=== PATIENT | male | born 1990 | race American Indian/Alaskan Native ===

== ENCOUNTER 2019-09-22 13:18 | Emergency (ER) | payer OTHER ==
[2019-09-22] MEDS ORDERED: diphenhydrAMINE 50 MG/ML VIAL IV ONE (13:30)
[2019-09-22] MEDS ORDERED: FAMOTIDINE 20 MG/2 ML INJ IV ONE (13:30)
[2019-09-22] MEDS ORDERED: dexAMETHasone 20 MG/5 ML VIAL IV ONE (13:30)
--- NOTE | 2019-09-22 15:30 | Emergency Department Report ---
ED General Adult HPI - General Chief complaint: Allergic Reaction Stated complaint: ALLERGIC REACTION Time Seen by Provider: 09/22/19 13:30 Source: patient Mode of arrival: Ambulatory Limitations: No Limitations - History of Present Illness Initial comments: 28-year-old man thinks he is some nuts by accident when he ate a candy bar. This is a poor historian however he is acting saying he is allergic to nuts. He developed swelling of his lips but does not complain of acute dyspnea. No complaint of pain. He has no difficulty with his secretions. He is not taking an RAMIRO inhibitor to my knowledge. -: Gradual, minutes(s) Location: face Severity scale (0 -10): 0 - Related Data Allergies Allergy/AdvReac Type Severity Reaction Status Date / Time nut - unspecified Allergy Hives Verified 09/22/19 13:19 ED Review of Systems ROS: Stated complaint: ALLERGIC REACTION Other details as noted in HPI Constitutional: denies: chills, fever Eyes: denies: eye pain, eye discharge, vision change ENT: denies: ear pain, throat pain Respiratory: denies: cough, shortness of breath, wheezing Cardiovascular: denies: chest pain, palpitations Endocrine: no symptoms reported Gastrointestinal: denies: abdominal pain, nausea, diarrhea Genitourinary: denies: urgency, dysuria Musculoskeletal: denies: back pain, joint swelling, arthralgia Skin: denies: rash, lesions Neurological: denies: headache, weakness, paresthesias Psychiatric: denies: anxiety, depression Hematological/Lymphatic: denies: easy bleeding, easy bruising ED Past Medical Hx - Past Medical History Previous Medical History?: No Additional medical history: Allergic reaction - Surgical History Past Surgical History?: No - Social History Smoking Status: Never Smoker Substance Use Type: None ED Physical Exam - General Limitations: No Limitations General appearance: alert, in no apparent distress - Head Head exam: Present: atraumatic, normocephalic - Eye Eye exam: Present: normal appearance - ENT ENT exam: Present: mucous membranes moist, other (1+ lip edema no oral pharyngeal edema) - Neck Neck exam: Present: normal inspection. Absent: tenderness, meningismus - Respiratory Respiratory exam: Present: normal lung sounds bilaterally. Absent: respiratory distress - Cardiovascular Cardiovascular Exam: Present: regular rate, normal rhythm. Absent: systolic murmur, diastolic murmur, rubs, gallop - GI/Abdominal GI/Abdominal exam: Present: soft, normal bowel sounds. Absent: distended, tenderness, guarding, rebound - Rectal Rectal exam: Present: deferred - Extremities Exam Extremities exam: Present: normal inspection - Back Exam Back exam: Present: normal inspection - Neurological Exam Neurological exam: Present: alert, oriented X3, CN II-XII intact. Absent: motor sensory deficit - Psychiatric Psychiatric exam: Present: normal affect, normal mood - Skin Skin exam: Present: warm, dry, intact, normal color. Absent: rash ED Course Vital Signs 09/22/19 09/22/19 09/22/19 13:23 13:47 13:59 Temperature 98.2 F 97.9 F Pulse Rate 55 L 107 H Respiratory 22 26 H 18 Rate Blood Pressure 122/55 114/71 [Left] O2 Sat by Pulse 92 95 Oximetry 09/22/19 09/22/19 09/22/19 14:01 14:15 14:31 Temperature Pulse Rate 89 86 86 Respiratory 17 17 16 Rate Blood Pressure [Left] O2 Sat by Pulse 96 97 93 Oximetry 09/22/19 14:45 Temperature Pulse Rate 86 Respiratory 14 Rate Blood Pressure [Left] O2 Sat by Pulse 95 Oximetry - Reevaluation(s) Reevaluation #1: Since angioedema responded to above medications. He was observed. He developed no airway problem. He is appropriate for outpatient management. Will verify that he does not take an RAMIRO inhibitor. 09/22/19 15:32 Critical care attestation.: If time is entered above; I have spent that time in minutes in the direct care of this critically ill patient, excluding procedure time. ED Disposition Clinical Impression: Angioedema Qualifiers: Encounter type: initial encounter Qualified Code(s): T78.3XXA - Angioneurotic edema, initial encounter Disposition: - TO HOME OR SELFCARE Is pt being admited?: No Does the pt Need Aspirin: No Condition: Stable Instructions: Angioedema (ED) Additional Instructions: Benadryl 25 mg every 6 hours 24 hours. Pepcid 10 mg twice a day for 5 days. These are [id number] medications. Follow up with a primary care physician. Return any recurrent swelling or acute change as needed. Time of Disposition: 15:33
[2019-09-22 17:57] VITALS: BP 110/64
== END 2019-09-22 16:48 | disposition home or self-care (01) ==
LOC: ED 13:18
DX: T78.3XXA Angioneurotic edema, initial encounter (principal); Z91.018 Allergy to other foods; Y92.89 Other specified places as the place of occurrence of the external cause
CPT/HCPCS: 96374; 96375; 99282; J1100; J1200

== ENCOUNTER 2020-01-13 22:30 | Emergency (ER) | payer OTHER ==
[2020-01-13 22:42] VITALS: BP 123/68
--- NOTE | 2020-01-14 03:42 | Emergency Department Report ---
ED ENT HPI - General Chief complaint: Sore Throat Stated complaint: FEVER/THROAT PAIN/FLU SX Time Seen by Provider: 01/14/20 02:01 Source: patient Mode of arrival: Ambulatory Limitations: No Limitations - History of Present Illness Initial comments: This is a 29-year-old -[place] male who presents to the emergency room with rhinorrhea, sore throat, chills, myalgia, and left ear pain for 1 day. Patient states he is taking Tylenol Cold and flu which improved his fever but he continues to have sore throat with swallowing. Denies nausea, vomiting, diarrhea, shortness of breath, wheezing, chest pain, nausea, vomiting, or diarrhea. MD complaint: sore throat, ear pain Onset/Timin -: days(s) Location: L ear, throat Severity: mild Severity scale (0 -10): 3 Quality: aching Consistency: constant Improves with: none Worsens with: swallowing, eating Associated Symptoms: pain with swallowing, sore throat. denies: cough, gum swelling, toothache, tinnitus, hearing loss, discharge from ear, rhinorrhea - Related Data Previous Rx's Medication Instructions Recorded Last Taken Type Penicillin V Potassium 500 mg PO BID #20 tablet 01/14/20 Unknown Rx Allergies Allergy/AdvReac Type Severity Reaction Status Date / Time nut - unspecified Allergy Hives Verified 09/22/19 13:19 ED Dental HPI - General Chief complaint: Sore Throat Stated complaint: FEVER/THROAT PAIN/FLU SX Time Seen by Provider: 01/14/20 02:01 Source: patient Mode of arrival: Ambulatory Limitations: No Limitations - Related Data Previous Rx's Medication Instructions Recorded Last Taken Type Penicillin V Potassium 500 mg PO BID #20 tablet 01/14/20 Unknown Rx Allergies Allergy/AdvReac Type Severity Reaction Status Date / Time nut - unspecified Allergy Hives Verified 09/22/19 13:19 ED Review of Systems ROS: Stated complaint: FEVER/THROAT PAIN/FLU SX Other details as noted in HPI Constitutional: chills. denies: fever ENT: ear pain (Left), throat pain, congestion Respiratory: denies: cough, shortness of breath, wheezing Cardiovascular: denies: chest pain, palpitations Gastrointestinal: denies: abdominal pain, nausea, diarrhea Musculoskeletal: myalgia. denies: back pain, joint swelling, arthralgia Skin: denies: rash, lesions Neurological: denies: headache, weakness, paresthesias Psychiatric: denies: anxiety, depression ED Past Medical Hx - Past Medical History Previous Medical History?: No Additional medical history: Allergic reaction - Surgical History Past Surgical History?: No - Social History Smoking Status: Current Every Day Smoker Substance Use Type: Alcohol - Medications Home Medications: Home Medications Medication Instructions Recorded Confirmed Last Taken Type Penicillin V Potassium 500 mg PO BID #20 tablet 01/14/20 Unknown Rx ED Physical Exam - General Limitations: No Limitations General appearance: alert, in no apparent distress - ENT ENT exam: Present: normal orophraynx (Erythematous and enlarged tonsils with white exudate), mucous membranes moist, TM's normal bilaterally, normal external ear exam - Neck Neck exam: Present: normal inspection - Respiratory Respiratory exam: Present: normal lung sounds bilaterally. Absent: respiratory distress - Cardiovascular Cardiovascular Exam: Present: regular rate, normal rhythm. Absent: systolic murmur, diastolic murmur, rubs, gallop - GI/Abdominal GI/Abdominal exam: Present: soft, normal bowel sounds. Absent: distended, tenderness, guarding, rebound, rigid - Extremities Exam Extremities exam: Present: normal inspection - Neurological Exam Neurological exam: Present: alert, oriented X3, normal gait - Psychiatric Psychiatric exam: Present: normal affect, normal mood - Skin Skin exam: Present: warm, dry, intact, normal color. Absent: rash ED Course Vital Signs 01/13/20 22:38 Temperature 98.4 F Pulse Rate 86 Respiratory 18 Rate Blood Pressure 123/68 O2 Sat by Pulse 97 Oximetry ED Medical Decision Making - Medical Decision Making This is a 29-year-old male that presents with sore throat and left ear pain for 1 day. Patient examined by me and stable. No distress noted. Centor positive for strep. Vitals stable. Start penicillin V 500 mg po bid x 10 days. Take Tylenol or ibuprofen for pain. Discussed plan with patient and he agreed with plan to treat outpatient. Discharged home stable with strict return instructions. Return to work tomorrow. Follow up with PCP in 48-72 hours. Critical care attestation.: If time is entered above; I have spent that time in minutes in the direct care of this critically ill patient, excluding procedure time. ED Disposition Clinical Impression: Acute sore throat, Otalgia of left ear Pharyngitis Qualifiers: Pharyngitis/tonsillitis etiology: unspecified etiology Qualified Code(s): J02.9 - Acute pharyngitis, unspecified Disposition: - TO HOME OR SELFCARE Is pt being admited?: No Condition: Stable Instructions: Pharyngitis (ED) Additional Instructions: Expect symptoms to improve within 3 or 4 days. There is no need for bed rest or isolation. Use Tylenol or Ibuprofen for symptoms of sore throat, headache, and fever. Return to work in 24 hours of taking antibiotics. Follow up with Primary Care Provider in 48-72 hours. Prescriptions: Penicillin V Potassium 500 mg PO BID #20 tablet Referrals: [facility] [place] [Outside] - 3-5 Days [facility] [Outside] - 3-5 Days [facility] [Provider Group] - 3-5 Days Forms: Work/School Release Form(ED) Time of Disposition: 03:43
== END 2020-01-14 03:55 | disposition home or self-care (01) ==
LOC: ED 22:30
DX: H92.02 Otalgia, left ear (principal); J02.9 Acute pharyngitis, unspecified; Z91.018 Allergy to other foods; F17.200 Nicotine dependence, unspecified, uncomplicated
CPT/HCPCS: 99281

== ENCOUNTER 2021-09-27 03:54 | Emergency (ER) | payer SELFPAY ==
[2021-09-27 04:01] VITALS: BP 122/82
[2021-09-27] MEDS ORDERED: oxyCODONE /ACETAMINOPHEN 5-325MG TAB PO ONE (04:48)
--- NOTE | 2021-09-27 04:55 | Emergency Department Report ---
ED ENT HPI - General Chief complaint: Dental/Oral Stated complaint: toothache Time Seen by Provider: 09/27/21 04:47 Source: patient Mode of arrival: Ambulatory Limitations: No Limitations - History of Present Illness Initial comments: 30-year-old F [place] male [facility] emerge department complaining of 1 to 2-week history of dental pain was started out in the left upper molar region and then now progressed to the left lower molar region. Pain is dull and throbbing worse with chewing may experience a dental trauma in the initial phase molar region when biting down tooth crack by intense pain reports no foul taste no significant swelling but the pain is radiating across his jawline and down to his left upper neck MD complaint: tooth pain -: Gradual Severity: moderate Quality: dull Consistency: constant Improves with: none Worsens with: eating Context- Dental: history of dental caries Associated Symptoms: toothache. denies: discharge from ear, rhinorrhea - Related Data Previous Rx's Medication Instructions Recorded Last Taken Type Penicillin V Potassium 500 mg PO BID #20 tablet 01/14/20 Unknown Rx Colchicine 0.6 mg PO DAILY #14 capsule 01/17/20 Unknown Rx Famotidine [Pepcid] 40 mg PO QHS #30 tablet 01/17/20 Unknown Rx Ibuprofen [Motrin 600 MG tab] 600 mg PO TID #42 tablet 01/17/20 Unknown Rx Amoxicillin [Amoxicillin TAB] 875 mg PO BID #20 tablet 09/27/21 Unknown Rx Chlorhexidine Mouthwash [Peridex] 15 ml MM BID #1 bottle 09/27/21 Unknown Rx Ketorolac [Toradol] 10 mg PO Q6H PRN #15 tablet 09/27/21 Unknown Rx Lidocaine Viscous 2% 5 ml MM Q3H PRN #120 udc 09/27/21 Unknown Rx Allergies Allergy/AdvReac Type Severity Reaction Status Date / Time nut - unspecified Allergy Hives Verified 09/22/19 13:19 ED Dental HPI - General Chief complaint: Dental/Oral Stated complaint: toothache Time Seen by Provider: 09/27/21 04:47 Source: patient Mode of arrival: Ambulatory Limitations: No Limitations - Related Data Previous Rx's Medication Instructions Recorded Last Taken Type Penicillin V Potassium 500 mg PO BID #20 tablet 01/14/20 Unknown Rx Colchicine 0.6 mg PO DAILY #14 capsule 01/17/20 Unknown Rx Famotidine [Pepcid] 40 mg PO QHS #30 tablet 01/17/20 Unknown Rx Ibuprofen [Motrin 600 MG tab] 600 mg PO TID #42 tablet 01/17/20 Unknown Rx Amoxicillin [Amoxicillin TAB] 875 mg PO BID #20 tablet 09/27/21 Unknown Rx Chlorhexidine Mouthwash [Peridex] 15 ml MM BID #1 bottle 09/27/21 Unknown Rx Ketorolac [Toradol] 10 mg PO Q6H PRN #15 tablet 09/27/21 Unknown Rx Lidocaine Viscous 2% 5 ml MM Q3H PRN #120 udc 09/27/21 Unknown Rx Allergies Allergy/AdvReac Type Severity Reaction Status Date / Time nut - unspecified Allergy Hives Verified 09/22/19 13:19 ED Review of Systems ROS: Stated complaint: toothache Other details as noted in HPI Comment: All other systems reviewed and negative ED Past Medical Hx - Past Medical History Additional medical history: Allergic reaction - Social History Smoking Status: Never Smoker Substance Use Type: None - Medications Home Medications: Home Medications Medication Instructions Recorded Confirmed Last Taken Type Penicillin V Potassium 500 mg PO BID #20 tablet 01/14/20 Unknown Rx Colchicine 0.6 mg PO DAILY #14 capsule 01/17/20 Unknown Rx Famotidine [Pepcid] 40 mg PO QHS #30 tablet 01/17/20 Unknown Rx Ibuprofen [Motrin 600 MG tab] 600 mg PO TID #42 tablet 01/17/20 Unknown Rx Amoxicillin [Amoxicillin TAB] 875 mg PO BID #20 tablet 09/27/21 Unknown Rx Chlorhexidine Mouthwash [Peridex] 15 ml MM BID #1 bottle 09/27/21 Unknown Rx Ketorolac [Toradol] 10 mg PO Q6H PRN #15 tablet 09/27/21 Unknown Rx Lidocaine Viscous 2% 5 ml MM Q3H PRN #120 udc 09/27/21 Unknown Rx ED Physical Exam - General Limitations: No Limitations General appearance: alert, in no apparent distress - Head Head exam: Present: atraumatic, normocephalic - Eye Eye exam: Present: normal appearance - ENT ENT exam: Present: mucous membranes moist, other (Some dental caries noted to the left upper molar region. But there is pain with palpation to the to the left lower molar region. No adjacent gingival swelling no bleeding airway patent tongue uvula midline) - Neck Neck exam: Present: normal inspection - Respiratory Respiratory exam: Present: normal lung sounds bilaterally. Absent: respiratory distress - Cardiovascular Cardiovascular Exam: Present: regular rate, normal rhythm. Absent: systolic murmur, diastolic murmur, rubs, gallop - GI/Abdominal GI/Abdominal exam: Present: soft, normal bowel sounds - Rectal Rectal exam: Present: deferred - Extremities Exam Extremities exam: Present: normal inspection - Back Exam Back exam: Present: normal inspection - Neurological Exam Neurological exam: Present: alert, oriented X3 - Psychiatric Psychiatric exam: Present: normal affect, normal mood - Skin Skin exam: Present: warm, dry, intact, normal color. Absent: rash ED Course Vital Signs 09/27/21 03:55 Temperature 98.6 F Pulse Rate 91 H Respiratory 16 Rate Blood Pressure 122/82 [Right] O2 Sat by Pulse 98 Oximetry Critical care attestation.: If time is entered above; I have spent that time in minutes in the direct care of this critically ill patient, excluding procedure time. ED Disposition Clinical Impression: Dentalgia Disposition: HOME / SELF CARE / HOMELESS Is pt being admited?: No Does the pt Need Aspirin: No Condition: Stable Instructions: Diet and Dental Disease, Ectopic Eruption of Teeth, Pediatric, Benzocaine mouth gel, ointment, solution, or dental paste, Preventive Dental Care, Adult Prescriptions: Amoxicillin [Amoxicillin TAB] 875 mg PO BID #20 tablet Lidocaine Viscous 2% 5 ml MM Q3H PRN #120 udc PRN Reason: Pain, Moderate (4-6) Chlorhexidine Mouthwash [Peridex] 15 ml MM BID #1 bottle Ketorolac [Toradol] 10 mg PO Q6H PRN #15 tablet PRN Reason: Pain Referrals: PRIMARY CARE,MD [Primary Care Provider] - 3-5 Days [facility] [Outside] - 3-5 Days
== END 2021-09-27 05:24 | disposition home or self-care (01) ==
LOC: ED 03:54
DX: K08.89 Other specified disorders of teeth and supporting structures (principal); Z59.00 Homelessness unspecified; Z79.899 Other long term (current) drug therapy
CPT/HCPCS: 99282

== ENCOUNTER 2021-11-03 20:30 | Emergency (ER) | payer SELFPAY ==
[2021-11-03 20:35] VITALS: BP 137/99
[2021-11-03] MEDS ORDERED: CLINDAMYCIN 300 MG CAP PO ONE (21:40)
[2021-11-03] MEDS ORDERED: ONDANSETRON 4 MG ODT TAB PO ONE (21:40)
[2021-11-03] MEDS ORDERED: IBUPROFEN 600 MG TAB PO ONE (21:40)
[2021-11-03] MEDS ORDERED: oxyCODONE /ACETAMINOPHEN 5-325MG TAB PO ONE (21:40)
[2021-11-03] MEDS ORDERED: DOXYCYCLINE 100 MG CAP PO ONE (21:41)
--- NOTE | 2021-11-03 22:16 | Emergency Department Report ---
ED General Adult HPI - General Chief complaint: Skin/Abscess/Foreign Body Stated complaint: CYST ON TAILBONE Source: patient Mode of arrival: Ambulatory Limitations: No Limitations - History of Present Illness Initial comments: Patient is a 31-year-old -[place] male with no past medical history presented to the ED with complaint of acute onset persistent painful mildly swollen rash on pilonidal area for the last 2 days. Patient states the pain is especially worse in the last 12 hours. Patient states that in the movement or palpation of the area makes the pain worse. 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 Patient states that he has not taken any medication prior to arrival in the ED. Patient denies dizziness, syncopal, traumatic injury, nausea and vomiting, fever, chills, urinary or bowel incontinence or saddle paresthesia. MD Complaint: pilonidal painful swollen rash -: Sudden, days(s) (2) Location: buttocks Radiation: non-radiation Severity scale (0 -10): 8 Quality: aching, sharp Improves with: none Associated Symptoms: denies other symptoms, rash (Swollen, painful pilonidal area due to a rash). denies: confusion, chest pain, cough, fever/chills, headaches, loss of appetite, malaise, nausea/vomiting, shortness of breath Treatments Prior to Arrival: none - Related Data Previous Rx's Medication Instructions Recorded Last Taken Type Penicillin V Potassium 500 mg PO BID #20 tablet 01/14/20 Unknown Rx Colchicine 0.6 mg PO DAILY #14 capsule 01/17/20 Unknown Rx Famotidine [Pepcid] 40 mg PO QHS #30 tablet 01/17/20 Unknown Rx Ibuprofen [Motrin 600 MG tab] 600 mg PO TID #42 tablet 01/17/20 Unknown Rx Amoxicillin [Amoxicillin TAB] 875 mg PO BID #20 tablet 09/27/21 Unknown Rx Chlorhexidine Mouthwash [Peridex] 15 ml MM BID #1 bottle 09/27/21 Unknown Rx Ketorolac [Toradol] 10 mg PO Q6H PRN #15 tablet 09/27/21 Unknown Rx Lidocaine Viscous 2% 5 ml MM Q3H PRN #120 udc 09/27/21 Unknown Rx Clindamycin [Clindamycin CAP] 300 mg PO Q8H #30 cap 11/03/21 Unknown Rx Doxycycline Hyclate 100 mg PO Q12H #20 cap 11/03/21 Unknown Rx Ibuprofen [Motrin] 800 mg PO Q8HR PRN #30 tablet 11/03/21 Unknown Rx traMADoL [Ultram] 50 mg PO Q6HR PRN #12 tablet 11/03/21 Unknown Rx Allergies Allergy/AdvReac Type Severity Reaction Status Date / Time nut - unspecified Allergy Hives Verified 09/22/19 13:19 ED Review of Systems ROS: Stated complaint: CYST ON TAILBONE Other details as noted in HPI Constitutional: denies: chills, fever Eyes: denies: eye pain, eye discharge, vision change ENT: denies: ear pain, throat pain Respiratory: denies: cough, shortness of breath, wheezing Cardiovascular: denies: chest pain, palpitations Endocrine: no symptoms reported Gastrointestinal: denies: abdominal pain, nausea, diarrhea Genitourinary: denies: urgency, dysuria Musculoskeletal: denies: back pain, joint swelling, arthralgia Skin: rash (Swollen, painful pilonidal rash). denies: lesions, change in color, change in hair/nails, pruritus, other Neurological: denies: headache, weakness, paresthesias Psychiatric: denies: anxiety, depression Hematological/Lymphatic: denies: easy bleeding, easy bruising ED Past Medical Hx - Past Medical History Additional medical history: Allergic reaction - Surgical History Past Surgical History?: No - Social History Smoking Status: Never Smoker Substance Use Type: None - Medications Home Medications: Home Medications Medication Instructions Recorded Confirmed Last Taken Type Penicillin V Potassium 500 mg PO BID #20 tablet 01/14/20 Unknown Rx Colchicine 0.6 mg PO DAILY #14 capsule 01/17/20 Unknown Rx Famotidine [Pepcid] 40 mg PO QHS #30 tablet 01/17/20 Unknown Rx Ibuprofen [Motrin 600 MG tab] 600 mg PO TID #42 tablet 01/17/20 Unknown Rx Amoxicillin [Amoxicillin TAB] 875 mg PO BID #20 tablet 09/27/21 Unknown Rx Chlorhexidine Mouthwash [Peridex] 15 ml MM BID #1 bottle 09/27/21 Unknown Rx Ketorolac [Toradol] 10 mg PO Q6H PRN #15 tablet 09/27/21 Unknown Rx Lidocaine Viscous 2% 5 ml MM Q3H PRN #120 udc 09/27/21 Unknown Rx Clindamycin [Clindamycin CAP] 300 mg PO Q8H #30 cap 11/03/21 Unknown Rx Doxycycline Hyclate 100 mg PO Q12H #20 cap 11/03/21 Unknown Rx Ibuprofen [Motrin] 800 mg PO Q8HR PRN #30 tablet 11/03/21 Unknown Rx traMADoL [Ultram] 50 mg PO Q6HR PRN #12 tablet 11/03/21 Unknown Rx ED Physical Exam - General Limitations: No Limitations General appearance: alert, in no apparent distress - Head Head exam: Present: atraumatic, normocephalic, normal inspection - Eye Eye exam: Present: normal appearance, PERRL, EOMI Pupils: Present: normal accommodation - ENT ENT exam: Present: normal exam, normal orophraynx, mucous membranes moist, TM's normal bilaterally, normal external ear exam - Neck Neck exam: Present: normal inspection, full ROM. Absent: tenderness, meningismus, lymphadenopathy - Respiratory Respiratory exam: Present: normal lung sounds bilaterally. Absent: respiratory distress, wheezes, rales, rhonchi, chest wall tenderness, accessory muscle use, decreased breath sounds, prolonged expiratory - Cardiovascular Cardiovascular Exam: Present: regular rate, normal rhythm, normal heart sounds. Absent: bradycardia, tachycardia, systolic murmur, diastolic murmur, rubs, gallop - GI/Abdominal GI/Abdominal exam: Present: soft, normal bowel sounds. Absent: distended, tenderness, rebound, hyperactive bowel sounds, hypoactive bowel sounds, organomegaly - Rectal Rectal exam: Present: other (Palpable severe tenderness on pilonidal area with mild swelling due to an nonfluctuant maculopapular rash) - Extremities Exam Extremities exam: Present: normal inspection, full ROM, normal capillary refill - Back Exam Back exam: Present: normal inspection, full ROM. Absent: tenderness, CVA tenderness (R), muscle spasm, paraspinal tenderness, vertebral tenderness, rash noted - Neurological Exam Neurological exam: Present: alert, oriented X3, CN II-XII intact, normal gait, reflexes normal - Psychiatric Psychiatric exam: Present: normal affect, normal mood - Skin Skin exam: Present: warm, dry, intact, normal color, rash (Palpable severe tenderness on pilonidal area with mild swelling due to maculopapular nonfluctuant rash) ED Course Vital Signs 11/03/21 20:32 Temperature 99.4 F Pulse Rate 99 H Respiratory 18 Rate Blood Pressure 137/99 O2 Sat by Pulse 96 Oximetry ED Medical Decision Making - Medical Decision Making Patient is a 31-year-old -[place] male with no past medical history presented to the ED with complaint of acute onset persistent painful mildly swollen rash on pilonidal area for the last 2 days. Patient states the pain is especially worse in the last 12 hours. Patient states that in the movement or palpation of the area makes the pain worse. 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 Patient states that he has not taken any medication prior to arrival in the ED. In the ED, patient is alert and oriented x3 and is not in any distress but appears to be in significant pain. Patient was treated for pain in the ED and was given initial oral antibiotics. Patient was discharged home on pain medication and antibiotics and advised to return to the ED immediately if symptoms get worse, otherwise follow-up with his primary care physician in 7 to 10 days for reevaluation. - Differential Diagnosis Pilonidal abscess; cellulitis; cutaneous abscess; folliculitis Critical care attestation.: If time is entered above; I have spent that time in minutes in the direct care of this critically ill patient, excluding procedure time. ED Disposition Clinical Impression: Sacrococcygeal pilonidal cyst with abscess, Pilonidal cyst with abscess Disposition: HOME / SELF CARE / HOMELESS Is pt being admited?: No Does the pt Need Aspirin: No Condition: Stable Instructions: Skin Abscess, [id number], Pilonidal Cyst Drainage, Care After Additional Instructions: Take medication with food, drink plenty of fluids and follow-up with your primary care physician in 7 to 10 days for reevaluation. Return to the ED immediately if symptoms get worse. Prescriptions: Clindamycin [Clindamycin CAP] 300 mg PO Q8H #30 cap Doxycycline Hyclate 100 mg PO Q12H #20 cap Ibuprofen [Motrin] 800 mg PO Q8HR PRN #30 tablet PRN Reason: Pain , Severe (7-10) traMADoL [Ultram] 50 mg PO Q6HR PRN #12 tablet PRN Reason: Pain Referrals: [facility] [Provider Group] - 3-5 Days Forms: Work/School Release Form(ED) Time of Disposition: 22:17 Print Language: TELUGU
== END 2021-11-03 23:28 | disposition home or self-care (01) ==
LOC: ED 20:30
DX: L05.01 Pilonidal cyst with abscess (principal)
CPT/HCPCS: 99282; J3490; Q0162